=== PATIENT | male | born 1950 | race Caucasian/White ===

== ENCOUNTER → 2017-09-08 | Outpatient (CLI) | payer OTHER | LOC: FIMAGING 09:37 | PROVIDERS: ATTEND Orthopaedic Surgery | DX: Z01.818 Encounter for other preprocedural examination (principal); M17.11 Unilateral primary osteoarthritis, right knee ==

== ENCOUNTER 2017-09-10 08:41 | Observation (INO) | payer OTHER ==
[~2017-09-10 08:41] MED LIST: *IRR*TRANEXAMIC ACID 3,000 MG/NS 50 ML IRR ONE; ROPIVACAINE 0.2% 80 MG, EPINEPHrine 0.2 MG, KETOROLAC TROMETHAMINE 30 MG in SYRINGE 0 ML IU ONE; TRANEXAMIC ACID 3,000 MG in NS 50 ML IRR ONE
[2017-09-10] MEDS ORDERED: TRANEXAMIC ACID 3,000 MG/50 ML BAG IRR ONE (11:01)
[2017-09-10] MEDS ORDERED: VANCOMYCIN 1 GM VIAL ONE (11:01)
--- NOTE | 2017-09-10 12:34 | PDHPUP ---
History & Physical Update H&P update statement: This history and physical update is based on an assessment of the patient which was completed after admission or registration (within 24 hours), but prior to the surgery/procedure. H&P update: H&P reviewed & patient examined, no change in patient's condition since H&P completed
[2017-09-10] MEDS ORDERED: ACETAMINOPHEN 325 MG TAB PO ONE (12:45)
[2017-09-10] MEDS ORDERED: DEXAMETHASONE 4 MG/ML VIAL IVP ONE (12:45)
[2017-09-10] MEDS ORDERED: FAMOTIDINE 20 MG TAB PO ONE (12:45)
[2017-09-10] MEDS ORDERED: ceFAZolin 2 GM/SWFI 2 GM/20 ML SYR IVP ONE (12:45)
[2017-09-10] MEDS ORDERED: LIDOCAINE 1% 2 ML INJ ID PRN (12:46)
[2017-09-10] MEDS ORDERED: LR 1,000 ML IV ONE (12:46)
[2017-09-10] MEDS ORDERED: MIDAZOLAM 2 MG/2 ML VIAL ONE (14:28)
[2017-09-10] MEDS ORDERED: MIDAZOLAM 2 MG/2 ML VIAL IVP ONE (14:29)
--- NOTE | 2017-09-10 14:33 | PDANEPAE ---
ANE Past Medical History - Cardiovascular History Hx Hypertension: No Hx Arrhythmias: No Hx Chest Pain: No Hx Coronary Artery / Peripheral Vascular Disease: No Hx CHF / Valvular Disease: No Hx Palpitations: No - Pulmonary History Hx COPD: No Hx Asthma/Reactive Airway Disease: No Hx Recent Upper Respiratory Infection: No Hx Oxygen in Use at Home: No Hx Sleep Apnea: No Sleep Apnea Screening Result - Last Documented: Negative - Neurologic History Hx Cerebrovascular Accident: No Hx Seizures: No Hx Dementia: No - Endocrine History Hx Diabetes: No - Renal History Hx Renal Disorders: No - Liver History Hx Hepatic Disorders: No - Neurological & Psychiatric Hx Hx Neurological and Psychiatric Disorders: No - Cancer History Hx Cancer: No - Congenital Disorder History Hx Congenital Disorders: No - GI History Hx Gastrointestinal Disorders: Yes Gastrointestinal History Comment: HIATAL HERNIA - Other Health History Other Health History: OSTEOARTHRITIS - Chronic Pain History Chronic Pain: Yes (RT KNEE) - Surgical History Prior Surgeries: LT CATARACT 03/2017. RT RTC 2012. RT KNEE SCOPE. LT COLLARBONE ORIF. JAW WIRING ANE Review of Systems Review of Systems: - Exercise capacity METS (RN): 4 METS ANE Patient History - Allergies Allergies/Adverse Reactions: No Known Allergies Allergy (Unverified 08/05/17 11:26) - Home Medications Home Medications: Brimonidine/Timolol [Combigan (*)] 1 drop LEFTEYE BID 08/05/17 [Last Taken 09/10 08:00] Loteprednol 0.5% [Lotemax 0.5%] 1 drops LEFTEYE DAILY 08/05/17 [Last Taken 09/10 07:00] Valacyclovir HCl [Valacyclovir] 1,000 mg PO DAILY 08/05/17 [Last Taken 09/09/17 08:00] - NPO status NPO Since - Liquids (Date): 09/10/17 NPO Since - Liquids (Time): 10:45 NPO Since - Solids (Date): 09/09/17 NPO Since - Solids (Time): 20:00 - Anes Hx Anes Hx: no prior problems - Smoking Hx Smoking Status: Former smoker ANE Labs/Vital Signs - Vital Signs Blood Pressure: 157/94 Heart Rate: 64 Respiratory Rate: 18 O2 Sat (%): 94 Height: 177.8 cm Weight: 74.843 kg ANE Physical Exam - Airway Neck exam: FROM Mallampati Score: Class 2 Mouth exam: normal dental/mouth exam - Pulmonary Pulmonary: no respiratory distress, no rales or rhonchi, clear to auscultation - Cardiovascular Cardiovascular: regular rate and rhythym, no murmur, rub, or gallop - ASA Status ASA Status: II ANE Anesthesia Plan Anesthesia Plan: spinal Regional Anesthesia: adductor canal FNB
[2017-09-10] MEDS ORDERED: DEXAMETHASONE 4 MG/ML VIAL ONE (14:39)
[2017-09-10] MEDS ORDERED: PROPOFOL/EMULSION 500 MG/50 ML BOTTLE IV ONE (14:39)
[2017-09-10] MEDS ORDERED: fentaNYL 100 MCG/2 ML INJ ONE (14:39)
[2017-09-10] MEDS ORDERED: LACTULOSE 20 GM/30 ML UDCUP PO PRN (14:58)
[2017-09-10] MEDS ORDERED: PROMETHAZINE HCL 25 MG SUPPR PR PRN (14:58)
[2017-09-10] MEDS ORDERED: POLYETHYLENE GLYCOL 3350 17 GM PKT PO PRN (14:58)
[2017-09-10] MEDS ORDERED: oxyCODONE IR 5 MG TAB PO PRN (14:58)
[2017-09-10] MEDS ORDERED: MAGNESIUM HYDROXIDE 30 ML UDCUP PO PRN (14:58)
[2017-09-10] MEDS ORDERED: CYCLOBENZAPRINE 10 MG TAB PO PRN (14:58)
[2017-09-10] MEDS ORDERED: ONDANSETRON DISINTEGRATING 4 MG TAB PO PRN (14:58)
[2017-09-10] MEDS ORDERED: TEMAZEPAM 15 MG CAP PO PRN (14:58)
[2017-09-10] MEDS ORDERED: ONDANSETRON 4 MG/2 ML VIAL IVP PRN ×2 (14:58→15:23)
[2017-09-10] MEDS ORDERED: diphenhydrAMINE 25 MG CAP PO PRN (14:58)
[2017-09-10] MEDS ORDERED: METOCLOPRAMIDE 10 MG/2 ML VIAL IVP PRN (14:58)
[2017-09-10] MEDS ORDERED: DIPHENOXYLATE/ATROPINE LOMOTIL 1 TAB PO PRN (14:58)
[2017-09-10] MEDS ORDERED: PROMETHAZINE HCL 25 MG/ML INJ IVP PRN ×2 (14:58→15:23)
[2017-09-10] MEDS ORDERED: BISACODYL 10 MG SUPP PR PRN (14:58)
[2017-09-10] MEDS ORDERED: LR 1,000 ML IV SCH (15:00)
[2017-09-10] MEDS ORDERED: OXYCODONE/APAP 5/325 TAB PO PRN (15:23)
[2017-09-10] MEDS ORDERED: fentaNYL 100 MCG/2 ML INJ IVP PRN (15:23)
[2017-09-10] MEDS ORDERED: NALOXONE HCL 0.4 MG/ML INJ IVP PRN (15:23)
[2017-09-10] MEDS ORDERED: LR 500 ML IV PRN (15:23)
--- NOTE | 2017-09-10 16:17 | POSTOPPROG ---
Post Op Note Date of Operation: 09/10/17 Surgeon: Megan Voss [employer] Business Teacher: Dai Voss PAc Anesthesiologist: Debbi Anesthesia: Spinal Pre-op Diagnosis: R knee DJD Post-op Diagnosis: same Indication: pain Procedure: R med PKA Findings: djd med djd Inf/Abcess present in the surg proc area at time of surgery?: No EBL: 50-100
--- NOTE | 2017-09-10 16:32 | POSTANESTH ---
Post Anesthetic Evaluation Cardiovascular Status: Normal, Stable, Similar to Pre-Op Cond Respiratory Status: Normal, Stable, Similar to Pre-op Cond. Level of Consciousness/Mental Status: Can Participate in Eval, Alert and Oriented Pain Control: Adequate, Prn Tx Ordered Nausea/Vomiting Control: Adequate, Prn Tx Ordered Complications Possibly Related to Anesthesia: None Noted (Adductor canal nerve block performed in PACU.)
[2017-09-10] MEDS: ACETAMINOPHEN 325 MG TAB PO SCH ×2 (17:31→23:26)
[2017-09-10] MEDS: ASPIRIN 81 MG CHEWABLE TAB PO SCH (20:28)
[2017-09-10] MEDS: FAMOTIDINE 20 MG TAB PO SCH (20:28)
[2017-09-10] MEDS: SENNOSIDES/DOCUSATE SODIUM TAB PO SCH (20:28)
[2017-09-10] MEDS: ceFAZolin 2 GM/DEXTROSE 100 ML IV SCH (23:26)
[2017-09-11] MEDS: ceFAZolin 2 GM/DEXTROSE 100 ML IV SCH (06:29)
[2017-09-11] MEDS: ACETAMINOPHEN 325 MG TAB PO SCH (06:29)
[2017-09-11 07:49] VITALS: BP 128/86; PULSE 94; RESP 18; TEMP 97.9; O2SAT 93
[2017-09-11] MEDS: SENNOSIDES/DOCUSATE SODIUM TAB PO SCH (09:53)
[2017-09-11] MEDS: ASPIRIN 81 MG CHEWABLE TAB PO SCH (09:53)
[2017-09-11] MEDS: FAMOTIDINE 20 MG TAB PO SCH (09:53)
--- NOTE | 2017-09-11 12:10 | ASDISCHSUM ---
Discharge Information Plan Status:Home with No Needs Medically Cleared to Leave: Discharge Date:09/11/2017 11:54 AM CM D/C Disposition:Home, Routine, Self-Care ADT D/C Disposition:Home, Routine, Self-Care Projected Discharge Date:09/11/2017 11:54 AM Transportation at D/C: Discharge Delay Reason: Follow-Up Date:09/11/2017 11:54 AM Discharge Slot: Final Diagnosis: Placement Information Patient Contact Information Contact Name:KEYONA Relationship: Address: [address] Work Phone: City:[place] Alternate Phone: State/Zip Code:[place] [address] Email: Financial Information Financial Class:Medicare Advantage Plans Primary Plan Desc:SHANE BOYD MEDICARE ADV Primary Plan Number:[id number] Secondary Plan Desc: Secondary Plan Number: Assessment Information Intervention Information
--- NOTE | 2017-09-11 13:06 | SOAPPROG ---
SOAP Progress Note Assessment/Plan: Assessment: Malik is doing POD 1 s/p R med MPL pain is well controlled on oral medications DVT ppx: recommend aspirin BID anemia: level is expected initially postop d/c planning: d/c to home pending release from PT Plan: 09/11/17 13:05 Subjective: Malik is doing well today, denies SOB, chest pain and N/V Objective: Vital Signs Temp Pulse Resp BP Pulse Ox 36.6 C 94 18 128/86 H 93 09/11/17 07:48 09/11/17 07:48 09/11/17 07:48 09/11/17 07:48 09/11/17 07:48 Laboratory Results 09/11/17 04:39 09/10/17 09/11/17 09/12/17 05:59 05:59 05:59 Intake Total 3110 Output Total 1750 600 Balance 1360 -600 RLE: incision dressing is clean and dry, NVI, +pf/df ICD10 Worksheet Patient Problems: Problems Problem Status Onset Primary localized osteoarthritis of right knee Acute
--- NOTE | 2017-09-11 14:17 | GOP ---
[f rep st] OPERATIVE REPORT DATE OF OPERATION: 09/10/2017 SURGEON: Yony Voss MD AIRCRAFT TECHNICIAN: Dai Voss PA-C ANESTHESIA: Spinal. PREOPERATIVE DIAGNOSIS: Right knee osteoarthritis. POSTOPERATIVE DIAGNOSIS: Right knee osteoarthritis. PROCEDURE PERFORMED: Right medial compartment partial knee replacement with computer navigation, robotic assist. FINDINGS: severe medial DJD ESTIMATED BLOOD LOSS: 30 cc. INDICATIONS: This is a 66-year-old male with progressive pain of the right knee unresponsive to conservative care. Risks and benefits of surgical intervention were explained in detail. DESCRIPTION OF PROCEDURE: The patient was brought to the operating room and placed on the table in supine position. Spinal anesthesia was induced without difficulty. A pneumatic tourniquet was applied about the right proximal thigh and the leg was prepped and draped in sterile fashion. Attention was turned first to the distal aspect of the right femur. At 3 cm proximal to the lateral rise of the femur, 2 percutaneous half pins were placed for fixation of the femoral array. In a similar fashion, 2 pins were placed anterolateral on the tibia for fixation of the tibial array. External land marking and registration of the hip center was performed without difficulty. After exsanguination by elevation, the tourniquet was inflated to 250 mmHg. Incision was made from the tibial tuberosity to the superior pole of the patella. Dissection was carried out through the subcutaneous tissue to the deep fascia using Bovie electrocautery for hemostasis. Medial parapatellar arthrotomy was carried out to the superior pole of the patella. The medial collateral ligament was elevated and the infrapatellar fat pad was resected. Internal femoral and tibial registration was carried out without difficulty and the femoral and tibial checkpoints were placed and verified for accuracy. Attention was turned to the femur. The foot print for the size 5 femoral component was cut with the 6 mm bur using the cartmi robotic system and verified for accuracy against the CT based plan. The hole was cut for the femoral post. In a similar fashion, the 6 mm bur was used to cut the foot print for the size 4 tibial component using the cartmi system and verified for accuracy against the CT based plan. Attention was turned to the posterior aspect of the knee and remnants of the medial meniscus were excised. The posterior capsule was injected with ropivacaine, epinephrine and Toradol. Trial reduction was carried out and there was excellent range of motion, alignment and stability using the size 5 femoral component and the size 4 tibial component. 4 x 9 mm polyethylene. All trials were then removed. The joint was thoroughly irrigated and carefully dried. One package of cement and 1 gram of vancomycin were mixed in the vacuum mixer and placed on the fixation surfaces of all components. The components were implanted and all excess cement was thoroughly removed. Implant placement was verified against the CT view plan and found to be excellent. The tourniquet was deflated and all bleeders were coagulated. The wound was thoroughly irrigated and closed using interrupted sutures of 2-0 Vicryl for the joint capsule. The subcu was closed with 3-0 Vicryl and the skin with 4-0 Monocryl. Dermabond and Steri-Strips were applied, followed by a compressive dressing. The patient was then moved from the operating room to the recovery room in good condition, having tolerated the procedure well. CASE CLASSIFICATION: Clean. /[id number]/MODL MTDD
--- NOTE | 2017-09-11 23:04 | GDS ---
[f rep st] DISCHARGE SUMMARY ADMISSION DIAGNOSIS: Right knee osteoarthritis. DISCHARGE DIAGNOSIS: Right knee osteoarthritis. PROCEDURE: Right partial knee arthroplasty, medial compartment, robot assisted. VTE PROPHYLAXIS: Recommend aspirin 81 mg twice daily for 4 weeks. BRIEF DESCRIPTION OF HOSPITAL STAY: Patient was admitted for an elective joint arthroplasty. The pa gasper tolerated the procedure well and has passed physical therapy. The patient was given appropriat e antibiotic prophylaxis and venous thromboembolism prophylaxis. The patient's pain was well control led on oral pain medication, patient was holding down food, and had urinated. Decision was made to d ischarge the patient. The patient was given post-operative prescriptions pre-operatively. PLAN: Please follow up as scheduled in Dr. Voss's office October 26 at 10:30 a.m. /[id number]/MODL
== END 2017-09-11 11:54 | disposition home or self-care (01) ==
LOC: INTOOBSV 12:17 → F3N 12:17
PROVIDERS: ADMIT Orthopaedic Surgery; ATTEND Orthopaedic Surgery
PROC: 0SRC0JZ Replacement of Right Knee Joint with Synthetic Substitute, Open Approach (ICD-10-PCS; principal; 2017-09-10 14:30)
DX: M17.11 Unilateral primary osteoarthritis, right knee (principal)
CPT/HCPCS: 27446; 73560; 97161; 97165; C1713; C1776; G0378; G8978; G8979; G8980; G8987; G8988; G8989; J0171; J0690; J1100; J1885; J2250; J2704; J2795; J3010; J3370

== ENCOUNTER → 2017-10-27 | Outpatient (CLI) | payer OTHER | LOC: FIMAGING 11:33 | PROVIDERS: ATTEND Orthopaedic Surgery | DX: Z01.818 Encounter for other preprocedural examination (principal); M17.9 Osteoarthritis of knee, unspecified ==

== ENCOUNTER 2017-10-29 10:10 | Observation (INO) | payer OTHER ==
[~2017-10-29 10:10] MED LIST changes: -*IRR*TRANEXAMIC ACID 3,000 MG/NS 50 ML IRR ONE; +BUPI/epINEPH/KETOROLAC IU ONE; +TRANEXAMIC ACID 3,000 MG in NS (SYRINGE) 50 ML IRR ONE; -TRANEXAMIC ACID 3,000 MG in NS 50 ML IRR ONE; +TRANEXAMIC ACID 3,000 MG/50 ML BAG IRR ONE
--- NOTE | 2017-10-29 11:16 | PDANEPAE ---
ANE History of Present Illness 66 year old male for left knee resurfacing. ANE Past Medical History - Cardiovascular History Hx Hypertension: No Hx Arrhythmias: No Hx Chest Pain: No Hx Coronary Artery / Peripheral Vascular Disease: No Hx CHF / Valvular Disease: No Hx Palpitations: No - Pulmonary History Hx COPD: No Hx Asthma/Reactive Airway Disease: No Hx Recent Upper Respiratory Infection: No Hx Oxygen in Use at Home: No Hx Sleep Apnea: No Sleep Apnea Screening Result - Last Documented: Negative - Neurologic History Hx Cerebrovascular Accident: No Hx Seizures: No Hx Dementia: No - Endocrine History Hx Diabetes: No Hypothyroid: No Hyperthyroid: No Obesity: no - Renal History Hx Renal Disorders: No - Liver History Hx Hepatic Disorders: No - Neurological & Psychiatric Hx Hx Neurological and Psychiatric Disorders: No - Cancer History Hx Cancer: No - Congenital Disorder History Hx Congenital Disorders: No - GI History Hx Gastrointestinal Disorders: Yes Gastrointestinal History Comment: HIATAL HERNIA - Other Health History Other Health History: OSTEOARTHRITIS - Chronic Pain History Chronic Pain: Yes (RT KNEE) - Surgical History Prior Surgeries: LT CATARACT 03/2017. RT RTC 2012. RT KNEE SCOPE. LT COLLARBONE ORIF. JAW WIRING ANE Review of Systems Review of systems is: negative Review of Systems: - Exercise capacity Exercise capacity: >=4 METS METS (RN): 4 METS ANE Patient History - Allergies Allergies/Adverse Reactions: No Known Allergies Allergy (Verified 10/29/17 11:33) - Home Medications Home medications: home medication list seen and reviewed Home Medications: Brimonidine/Timolol [Combigan (*)] 1 drop LEFTEYE BID 08/05/17 [Last Taken 10/29] Loteprednol 0.5% [Lotemax 0.5% (RX)] 1 drops LEFTEYE DAILY 08/05/17 [Last Taken 10/29/17] Valacyclovir HCl [Valacyclovir] 1,000 mg PO DAILY 08/05/17 [Last Taken 10/28/17] - Anes Hx Anes Hx: no prior problems - Smoking Hx Smoking Status: Former smoker - Family Anes Hx Family Anes Hx: neg - N/A Family Hx Anesthesia Complications: none ANE Labs/Vital Signs - Vital Signs Vital Signs: reviewed preoperatively; see RN documention for details Height: 177.8 cm Weight: 74.843 kg ANE Physical Exam - Airway Neck exam: FROM Mallampati Score: Class 2 Mouth exam: normal dental/mouth exam - Pulmonary Pulmonary: no respiratory distress - Cardiovascular Cardiovascular: regular rate and rhythym - ASA Status ASA Status: II ANE Anesthesia Plan Anesthesia Plan: MAC, spinal Regional Anesthesia: single shot NB, adductor canal FNB Total IV Anesthesia: No
[2017-10-29] MEDS ORDERED: DEXAMETHASONE 4 MG/ML VIAL IVP ONE (11:32)
[2017-10-29] MEDS ORDERED: ceFAZolin 2 GM/SWFI 2 GM/20 ML SYR IVP ONE (11:32)
[2017-10-29] MEDS ORDERED: FAMOTIDINE 20 MG TAB PO ONE (11:32)
[2017-10-29] MEDS ORDERED: ACETAMINOPHEN 325 MG TAB PO ONE (11:32)
[2017-10-29] MEDS ORDERED: VANCOMYCIN 1 GM VIAL ONE (11:45)
[2017-10-29] MEDS ORDERED: MIDAZOLAM 2 MG/2 ML VIAL ONE (11:53)
[2017-10-29] MEDS ORDERED: MIDAZOLAM 2 MG/2 ML VIAL IVP ONE (11:55)
[2017-10-29] MEDS ORDERED: PROPOFOL/EMULSION 500 MG/50 ML BOTTLE IV ONE ×2 (11:58→12:44)
[2017-10-29] MEDS ORDERED: ONDANSETRON 4 MG/2 ML VIAL ONE (12:30)
[2017-10-29] MEDS ORDERED: ROPIVACAINE HCL 150 MG/30 ML INJ ONE (12:30)
[2017-10-29] MEDS ORDERED: PROMETHAZINE HCL 25 MG/ML INJ IVP PRN ×2 (12:41→12:56)
[2017-10-29] MEDS ORDERED: METOCLOPRAMIDE 10 MG/2 ML VIAL IVP PRN (12:41)
[2017-10-29] MEDS ORDERED: ONDANSETRON 4 MG/2 ML VIAL IVP PRN ×2 (12:41→12:56)
[2017-10-29] MEDS ORDERED: ONDANSETRON DISINTEGRATING 4 MG TAB PO PRN (12:41)
[2017-10-29] MEDS ORDERED: diphenhydrAMINE 25 MG CAP PO PRN (12:41)
[2017-10-29] MEDS ORDERED: BISACODYL 10 MG SUPP PR PRN (12:41)
[2017-10-29] MEDS ORDERED: POLYETHYLENE GLYCOL 3350 17 GM PKT PO PRN (12:41)
[2017-10-29] MEDS ORDERED: MAGNESIUM HYDROXIDE 30 ML UDCUP PO PRN (12:41)
[2017-10-29] MEDS ORDERED: oxyCODONE IR 5 MG TAB PO PRN ×2 (12:41→12:56)
[2017-10-29] MEDS ORDERED: DIPHENOXYLATE/ATROPINE LOMOTIL 1 TAB PO PRN (12:41)
[2017-10-29] MEDS ORDERED: LACTULOSE 20 GM/30 ML UDCUP PO PRN (12:41)
[2017-10-29] MEDS ORDERED: PROMETHAZINE HCL 25 MG SUPPR PR PRN (12:41)
[2017-10-29] MEDS ORDERED: CYCLOBENZAPRINE 10 MG TAB PO PRN (12:41)
[2017-10-29] MEDS ORDERED: PHENYLEPHRINE HCL 100 MCG/ML SYR IVP PRN (12:56)
[2017-10-29] MEDS ORDERED: ACETAMINOPHEN 500 MG TAB PO PRN (12:56)
[2017-10-29] MEDS ORDERED: fentaNYL 100 MCG/2 ML INJ IVP PRN (12:56)
[2017-10-29] MEDS ORDERED: NALOXONE HCL 0.4 MG/ML INJ IVP PRN (12:56)
[2017-10-29] MEDS ORDERED: LR 500 ML IV PRN (12:56)
[2017-10-29] MEDS ORDERED: HYDROmorphONE/DILAUDID 1 MG/ML INJ IVP PRN (12:56)
[2017-10-29] MEDS ORDERED: LR 1,000 ML IV SCH (13:00)
--- NOTE | 2017-10-29 13:32 | POSTOPPROG ---
Post Op Note Date of Operation: 10/29/17 Surgeon: Megan Ward Dental Insurance Coordinator: jalyn ward Anesthesiologist: dr. crouch Anesthesia: Spinal, Other (Specify) (adductor canal block) Pre-op Diagnosis: left knee OA Post-op Diagnosis: same Indication: left knee pain Procedure: L med MPL robot assisted Findings: severe knee OA Inf/Abcess present in the surg proc area at time of surgery?: No EBL: 50-100
[2017-10-29] MEDS ORDERED: ceFAZolin 2 GM/DEXTROSE 100 ML IV SCH (14:00)
[2017-10-29 15:51] VITALS: RESP 16
--- NOTE | 2017-10-29 16:35 | POSTANESTH ---
Post Anesthetic Evaluation Cardiovascular Status: Normal, Stable, Similar to Pre-Op Cond Respiratory Status: Normal, Stable, Similar to Pre-op Cond. Level of Consciousness/Mental Status: Can Participate in Eval, Alert and Oriented Pain Control: Adequate, Prn Tx Ordered Nausea/Vomiting Control: Adequate, Prn Tx Ordered Complications Possibly Related to Anesthesia: None Noted
[2017-10-29] MEDS: ACETAMINOPHEN 325 MG TAB PO SCH (18:24)
[2017-10-29] MEDS: ceFAZolin 2 GM/SWFI 2 GM/20 ML SYR IVP SCH (20:12)
[2017-10-29] MEDS: ASPIRIN 81 MG CHEWABLE TAB PO SCH (20:13)
[2017-10-29] MEDS: FAMOTIDINE 20 MG TAB PO SCH (20:13)
[2017-10-29] MEDS: SENNOSIDES/DOCUSATE SODIUM TAB PO SCH (20:14)
[2017-10-29] MEDS: BRIMONIDINE/TIMOLOL 5 ML OPHT.BTL LEFTEYE SCH (20:21)
[2017-10-29] MEDS: TEMAZEPAM 15 MG CAP PO PRN (22:03)
[2017-10-30] MEDS: ACETAMINOPHEN 325 MG TAB PO SCH ×2 (00:04→04:54)
[2017-10-30] MEDS: TEMAZEPAM 15 MG CAP PO PRN (00:08)
[2017-10-30] MEDS: ceFAZolin 2 GM/SWFI 2 GM/20 ML SYR IVP SCH (04:53)
[2017-10-30 08:05] VITALS: BP 117/77; PULSE 73; TEMP 97.5; O2SAT 96
[2017-10-30] MEDS: SENNOSIDES/DOCUSATE SODIUM TAB PO SCH (08:58)
[2017-10-30] MEDS: FAMOTIDINE 20 MG TAB PO SCH (08:59)
[2017-10-30] MEDS: ASPIRIN 81 MG CHEWABLE TAB PO SCH (08:59)
[2017-10-30] MEDS ORDERED: valACYclovir 500 MG TAB PO SCH (09:00)
[2017-10-30] MEDS ORDERED: LOTEPREDNOL 0.5% LEFTEYE SCH (09:00)
[2017-10-30] MEDS: BRIMONIDINE/TIMOLOL 5 ML OPHT.BTL LEFTEYE SCH (09:19)
--- NOTE | 2017-10-30 13:57 | GOP ---
[f rep st] OPERATIVE REPORT DATE OF OPERATION: 10/29/2017 SURGEON: Yony Voss MD VIDEO EDITING INTERN: JACQUELINE Arndt ANESTHESIA: Spinal. PREOPERATIVE DIAGNOSIS: Left knee osteoarthritis. POSTOPERATIVE DIAGNOSIS: Left knee osteoarthritis. PROCEDURE PERFORMED:, left medial compartment partial knee replacement with computer navigation and robotic assist. FINDINGS: severe medial OA ESTIMATED BLOOD LOSS: 30 cc. INDICATIONS: This is a 66-year old gentleman with progressive pain of the left knee unresponsive to conservative care. Risks and benefits of surgical intervention were explained in detail. DESCRIPTION OF PROCEDURE: The patient was brought to the operating room and placed on the table in supine position. Spinal anesthesia was induced without difficulty. A pneumatic tourniquet was applied about the left proximal thigh and the leg was prepped and draped in sterile fashion. Attention was turned first to the distal aspect of the left femur. At 3 cm proximal to the lateral rise of the femur, 2 percutaneous half pins were placed for fixation of the femoral array. In a similar fashion, 2 pins were placed anterolateral on the tibia for fixation of the tibial array. External land marking and registration of the hip center was performed without difficulty. After exsanguination by elevation, the tourniquet was inflated to 250 mmHg. Incision was made from the tibial tuberosity to the superior pole of the patella. Dissection was carried out through the subcutaneous tissue to the deep fascia using Bovie electrocautery for hemostasis. Medial parapatellar arthrotomy was carried out to the superior pole of the patella. The medial collateral ligament was elevated and the infrapatellar fat pad was resected. Internal femoral and tibial registration was carried out without difficulty and the femoral and tibial checkpoints were placed and verified for accuracy. Attention was turned to the femur. The foot print for the size 4 femoral component was cut with the 6 mm bur using the [employer] robotic system and verified for accuracy against the CT based plan. The hole was cut for the femoral post. In a similar fashion, the 6 mm bur was used to cut the foot print for the size 4 tibial component using the Evoz system and verified for accuracy against the CT based plan. Attention was turned to the posterior aspect of the knee and remnants of the medial meniscus were excised. The posterior capsule was injected with ropivacaine, epinephrine and Toradol. Trial reduction was carried out and there was excellent range of motion, alignment and stability using the size 4 femoral component and the size 4 tibial component, 4 x 8 mm polyethylene. All trials were then removed. The joint was thoroughly irrigated and carefully dried. One package of cement and 1 gram of vancomycin were mixed in the vacuum mixer and placed on the fixation surfaces of all components. The components were implanted and all excess cement was thoroughly removed. Implant placement was verified against the CT view plan and found to be excellent. The tourniquet was deflated and all bleeders were coagulated. The wound was thoroughly irrigated and closed using interrupted sutures of 2-0 Vicryl for the joint capsule. The subcu was closed with 3-0 Vicryl and the skin with 4-0 Monocryl. Dermabond and Steri-Strips were applied, followed by a compressive dressing. The patient was then moved from the operating room to the recovery room in good condition, having tolerated the procedure well. CASE CLASSIFICATION: Clean. /[id number]/MODL MTDD
--- NOTE | 2017-10-30 16:38 | SOAPPROG ---
SOAP Progress Note Assessment/Plan: Assessment: Patient is doing well POD 1 s/p L med MPL Pain management: pain is well controlled on oral pain meds. VTE ppx: recommend aspirin 81 mg BID for 4 weeks, cont SHANELL and SCDs Anemia: level is expected initially postop. Asymptomatic. Continue to monitor D/c planning: d/c to home today pending release from PT Plan: 10/30/17 16:37 Subjective: sharon is doing well, denies SOB, chest pain and N/V. Objective: Vital Signs Temp Pulse Resp BP Pulse Ox 36.4 C 73 16 117/77 96 10/30/17 08:00 10/30/17 08:00 10/30/17 08:00 10/30/17 08:00 10/30/17 08:00 Laboratory Results 10/30/17 04:55 10/29/17 10/30/17 10/31/17 05:59 05:59 05:59 Intake Total 3150 Output Total 15 Balance 3135 LLE; incision dressing is clean and dry, NVI, +pf/df ICD10 Worksheet Patient Problems: Problems Problem Status Onset Primary localized osteoarthritis of left knee Acute Primary localized osteoarthritis of right knee Acute
--- NOTE | 2017-10-30 17:58 | GDS ---
[f rep st] DISCHARGE SUMMARY ADMISSION DIAGNOSIS: Left knee osteoarthritis. DISCHARGE DIAGNOSIS: Left knee osteoarthritis. PROCEDURE: Left partial knee arthroplasty, medial compartment; robot assisted. VTE PROPHYLAXIS: Recommend aspirin twice daily for 4 weeks. BRIEF DESCRIPTION OF HOSPITAL STAY: Patient was admitted for an elective joint arthroplasty. The pa tient tolerated the procedure well and has passed physical therapy. The patient was given appropriat e antibiotic prophylaxis and venous thromboembolism prophylaxis. The patient's pain was well control led on oral pain medication, patient was holding down food, and had urinated. Decision was made to d ischarge the patient. The patient was given post-operative prescriptions pre-operatively. PLAN: To follow up with Dr. Voss at [facility] in 2 to 3 weeks. /[id number]/MODL
== END 2017-10-30 10:40 | disposition home or self-care (01) ==
LOC: FSGY 10:10 → F3N 12:41
PROVIDERS: ADMIT Orthopaedic Surgery; ATTEND Orthopaedic Surgery
PROC: 0SRD0KZ Replacement of Left Knee Joint with Nonautologous Tissue Substitute, Open Approach (ICD-10-PCS; principal; 2017-10-29 12:15)
DX: M17.12 Unilateral primary osteoarthritis, left knee (principal)
CPT/HCPCS: 27446; 73560; 97110; 97116; 97161; 97165; C1713; C1776; G0378; J0171; J0690; J1100; J1885; J2250; J2405; J2704; J2795; J3370